=== PATIENT | female | born 1975 | race Caucasian/White ===

== ENCOUNTER 2022-09-14 10:53 | Emergency (ER) | payer BC ==
[2022-09-14] MEDS ORDERED: Aspirin Chewable 81 MG TAB ONE (11:25)
[2022-09-14] MEDS ORDERED: Famotidine/PF 20 mg/2ml Vial ONE (11:26)
[2022-09-14] MEDS ORDERED: Mag-Al Plus 1200 MG/1200 MG/120 MG/30 ML UDCUP ONE (11:26)
[2022-09-14] MEDS ORDERED: Lidocaine Viscous Sol 2% 15 ml UD Cup ONE (11:27)
[2022-09-14 12:03] LABS: #Monocytes 0.9 10x3/uL (0.0-1.1); #Neutrophils 9.8 10x3/uL (1.5-8.4); %Basophils 0.1 % (0.0-2.0); %Eosinophils 0.1 % (0.0-6.0); %Lymphocytes 12.9 % (18.0-47.0); %Neutrophils 79.3 % (40.0-75.0); Hemoglobin 13.7 g/dL (12.0-15.5); Mean Corpuscular HGB CONC 34.8 g/dL (32.0-36.0); Mean Corpuscular Volume 92.1 fl (81.6-98.3); Platelet Count 337 10x3/uL (150-450); RBC Distribution Width 12.6 % (11.5-14.5); Red Blood Cell (RBC) Count 4.28 10x6/uL (3.90-5.03); White Blood Cell (WBC) Count 12.4 10x3/uL (3.5-10.5)
[2022-09-14 12:22] LABS: BHCG - Serum Negative (NEGATIVE); Pregs Control Background? CLEAR/WHITE (CLR/WHITE); Pregs Control Bar Appear? YES (CONTROL BAR)
[2022-09-14 12:35] LABS: ALT (SGPT) 14 U/L (8-55); AST (SGOT) 15 U/L (5-34); Albumin 4.4 g/dL (3.5-5.0); Alkaline Phosphatase 65 U/L (40-110); Anion Gap 15 mmol/L (10-20); BUN (Urea Nitrogen) 11 mg/dL (7.0-18.7); Bilirubin, Total 0.3 mg/dL (0.2-1.2); CK (CPK) 51 U/L (29-168); Calc. Creatinine Clearance 0 mL/min (70-130); Calcium 9.6 mg/dL (7.8-10.44); Carbon Dioxide 22 mmol/L (22-29); Chloride 108 mmol/L (98-107); Estimated GFR 99; Globulin 2.6 g/dL (2.4-3.5); Glucose 102 mg/dL (70-105); Lipase 16 U/L (8-78); Potassium 3.9 mmol/L (3.5-5.1); Sodium 141 mmol/L (136-145)
== END 2022-09-14 13:16 | disposition home or self-care (01) ==
LOC: CSHERS 10:53
DX: R07.89 Other chest pain (principal); L50.0 Allergic urticaria
CPT/HCPCS: 71045; 76705; 80053; 82550; 83690; 84484; 84703; 85025; 93005; 96374; S0028